=== PATIENT | female | born 1995 | race Caucasian/White ===

== ENCOUNTER 2017-09-01 05:36 | Day surgery (SDC) | payer OTHER ==
[2017-08-31 12:06] LABS: BASOPHILS % (AUTO) 0.6 % (0.0-2.0); EOSINOPHILS % (AUTO) 5.7 % (1.0-6.0); HEMATOCRIT 40.1 % (36-46); HEMOGLOBIN 13.9 g/dL (12.0-16.0); LYMPHOCYTES # (AUTO) 1.3 K/uL (1.0-4.8); LYMPHOCYTES % (AUTO) 22.5 % (22.0-44.0); MEAN CORPUSCULAR HEMOGLOBIN 29.5 pg (26.0-34.0); MEAN CORPUSCULAR HGB CONC 34.7 G/dL (31.0-37.0); MEAN CORPUSCULAR VOLUME 85 fL (80-100); MONOCYTES # (AUTO) 0.3 K/uL (0.1-1.0); MONOCYTES % (AUTO) 4.2 % (2.0-9.0); PLATELET COUNT (AUTO) 237 K/uL (150-450); RED BLOOD CELL COUNT(AUTO) 4.71 MIL/uL (4.00-5.20); RED CELL DISTRIBUTION WIDTH 13.2 % (11.5-14.5)
[~2017-09-01] VITALS: Ht 152.4 cm; Wt 56.4 kg
[~2017-09-01 05:36] MED LIST: RINGERS SOLUTION,LACTATED 1,000 ML IV ONE
[2017-09-01] MEDS ORDERED: FentaNYL CITRATE-PF 100 MCG/2 ML VIAL IVP ONE (05:37)
[2017-09-01] MEDS ORDERED: MIDAZOLAM HCL 2 MG/2 ML VIAL IVP ONE (05:37)
[2017-09-01] MEDS ORDERED: LIDOCAINE HCL/PF 2% 5 ML VIAL IM ONE (05:37)
[2017-09-01] MEDS ORDERED: ONDANSETRON HCL 4 MG/2 ML VIAL IVP ONE (05:37)
[2017-09-01] MEDS ORDERED: PROPOFOL 1% 20 ML VIAL IVP ONE (05:37)
[2017-09-01] MEDS ORDERED: 0.9% SODIUM CHLORIDE 10 ML VIAL IVP ONE (05:37)
[2017-09-01] MEDS ORDERED: CeFAZolin 2 GM/DEXTROSE 50 ML IV ONE ×2 (07:00→07:49)
[2017-09-01] MEDS ORDERED: 0.9% SODIUM CHLORIDE 10 ML SYRINGE IVP ONE (07:48)
[2017-09-01] MEDS ORDERED: RINGERS SOLUTION,LACTATED 1,000 ML IV ONE ×2 (07:49→10:00)
[2017-09-01] MEDS ORDERED: LIDOCAINE HCL 1%/EPI 1:200,000/PF 30 ML VIAL ONE (10:43)
[2017-09-01] MEDS ORDERED: BUPIVACAINE HCL/PF 0.5% 30 ML VIAL ONE (10:44)
[2017-09-01] MEDS ORDERED: MEPERIDINE-PF 25 MG/ML SYRINGE IVP PRN (13:00)
[2017-09-01] MEDS ORDERED: HYDROmorphone 2 MG/ML SYRINGE IVP PRN (13:00)
[2017-09-01] MEDS ORDERED: ACETAMINOPHEN 500 MG TABLET PO PRN (13:15)
[2017-09-01] MEDS ORDERED: IBUPROFEN 600 MG TABLET PO PRN (13:15)
== END 2017-09-01 14:50 | disposition home or self-care (01) ==
LOC: SURGERY 05:36
PROVIDERS: ATTEND Surgery
DX: D24.1 Benign neoplasm of right breast (principal)
CPT/HCPCS: 19120; 36415; 84703; 85025; 88305; J0690 ×2; J2250; J2405; J2704; J3010; J3490 ×3; J7120